=== PATIENT | male | born 2005 | race African-American/Black ===

== ENCOUNTER 2024-12-25 11:51 | Emergency (ER) | payer OTHER ==
[~2024-12-25] VITALS: Ht 167.6 cm; Wt 61.4 kg
[2024-12-25 12:09] VITALS: BP 122/76; PULSE 75; RESP 16; TEMP 98; O2SAT 98
[2024-12-25] MEDS ORDERED: FLUT16SP NASAL (12:57)
== END 2024-12-25 13:14 | disposition home or self-care (01) ==
LOC: EMS 11:56
DX: H69.92 Unspecified Eustachian tube disorder, left ear (principal); Z71.6 Tobacco abuse counseling
CPT/HCPCS: 99283; Z7502